=== PATIENT | male | born 1960 | race Caucasian/White ===

== ENCOUNTER 2018-02-23 10:41 | Emergency (ER) | payer BC ==
[2018-02-23 11:05] VITALS: BP 129/90
[2018-02-23] MEDS ORDERED: Diphtheria,Pertussis(Acell),Tetanus Vaccine 0.5 ML SDV IM ONE (12:09)
--- NOTE | 2018-02-23 13:06 | EDM.PDOC ---
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 No LOC. Tetanus status unknown. No changes in vision. Denies trauma to eyes/nose or anywhere else on face. No neck pain. Able to open and close jaw, says teeth meet up appropriately. No other complaints. Treatments ACADEMY DIRECTOR: Reports: Other (see below) Other Treatments ACADEMY DIRECTOR: pressure dressing to lip Lip Pain Score (Numeric/FACES): 0 - Related Data Allergies Allergy/AdvReac Type Severity Reaction Status Date / Time morphine Allergy Itching Verified 02/23/18 11:01 Home Meds: Home Meds Lisinopril/Hydrochlorothiazide [Lisinopril-Hctz 20-25 mg Tab] 1 tab PO DAILY [History] Acetaminophen [Tylenol] 650 mg PO Q4H PRN #100 tablet 04/14/16 [Rx] Aspirin [Adult Low Dose Aspirin EC] 81 mg PO QAM 10/28/16 [History] Metoprolol Succinate [Toprol XL] 25 mg PO BEDTIME 10/28/16 [History] glipiZIDE [Glucotrol XL] 2.5 mg PO DAILY #30 tab.er 10/30/16 [Rx] metFORMIN [Glucophage] 850 mg PO BID #60 tablet 10/30/16 [Rx] Multivitamins [Tab-A-Carmita] 1 tab PO DAILY 02/23/18 [History] Penicillin V Potassium [Veetids] 500 mg PO Q8H #15 tab 02/23/18 [Rx] Ubidecarenone [Co Q-10] 100 mg PO DAILY 02/23/18 [History] Past Medical History HEENT History: Reports: Impaired Vision, Other (See Below) Other HEENT History: Wears glasses Cardiovascular History: Reports: High Cholesterol, Hypertension, Other (See Below) Other Cardiovascular History: 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 Respiratory History: Reports: None Gastrointestinal History: Reports: Colon Polyp, Diverticulosis, GERD, Other ( See Below) Other Gastrointestinal History: Diverticulosis by CT scan, fatty liver as above , benign polyp at age 51 Genitourinary History: Reports: Renal Calculus, Other (See Below) Other Genitourinary History: Chronic left-sided nephrolithiasis diagnosed by CT scan on 01/04/13 Musculoskeletal History: Reports: Fracture, Osteoarthritis, Other (See Below) Other Musculoskeletal History: Right wrist fracture at age 18 Neurological History: Reports: None Psychiatric History: Reports: None Endocrine/Metabolic History: Reports: Diabetes, Type II, Other (See Below) Other Endocrine/Metabolic History: Borderline diabetes currently treated with diet Hematologic History: Reports: None Immunologic History: Reports: None Oncologic (Cancer) History: Reports: None Dermatologic History: Reports: None - Infectious Disease History Infectious Disease History: Reports: Chicken Pox, Mumps - Past Surgical History Head Surgeries/Procedures: Reports: None HEENT Surgical History: Reports: Oral Surgery, Other (See Below) Respiratory Surgical History: Reports: None GI Surgical History: Reports: Colonoscopy, Polypectomy, Other (See Below) Male Surgical History: Reports: Circumcision, Other (See Below) Neurological Surgical History: Reports: None Musculoskeletal Surgical History: Reports: Knee Replacement, Shoulder Surgery, Other (See Below) Oncologic Surgical History: Reports: None Dermatological Surgical History: Reports: None - Past Imaging History Past Imaging History: Reports: CAT Scan Social & Family History - Family History HEENT: Reports: None. Denies: Allergic Rhinitis, Glaucoma, Macular Degeneration , Retinal Detachment Cardiac: Reports: CAD, NM, Other (See Below) Other Cardiac Family History: Maternal uncle with recurrent NM initially in his 50s, paternal uncle with fatal NM at about age 60 Respiratory: Reports: None. Denies: Asthma, COPD, PE, Sleep Apnea GI: Reports: None. Denies: Cholelithiasis, Colon Polyps, GERD, Hepatitis, Inflammatory Bowel Disease, Pancreatitis, PUD : Reports: None. Denies: Dialysis, Renal Calculus, Renal Disease/ Insufficiency OBGYN: Reports: None. Denies: Endometriosis, Recurrent Spontaneous Musculoskeletal: Reports: Arthritis, Osteoarthritis, Other (See Below) Other Musculoskeletal Family History: Mother with arthritis Neurological: Reports: Cerebral Aneurysms, CVA, Other (See Below) Other Neurological Family History: Father with bleeding cerebral aneurysm and mild hemorrhagic CVA with successful surgery at age 47 Psychiatric: Reports: None. Denies: Abuse, Victim of, Anxiety, Depression, Psych Hospitalization(s), Suicide Attempt Endocrine/Metabolic: Reports: None. Denies: Diabetes, Type I, Diabetes, type II , Hypothyroidism, IDDM Hematologic: Reports: None. Denies: Anemia, B12 Deficiency, SLE, Transfusion Reaction Immunologic: Reports: None. Denies: AIDS, HIV Dermatologic: Reports: None. Denies: Eczema, Psoriasis Oncologic: Reports: Brain, Lung, Other (See Below) Other Oncologic Family History: Other with unknown type of fatal cancer at age 83, brother with fatal lung cancer at age 60, sister with fatal brain cancer at age 50 - Tobacco Use Smoking Status *Q: Former Smoker Used Tobacco, but Quit: Yes Month/Year Tobacco Last Used: quit many years ago - Caffeine Use Caffeine Use: Reports: Coffee, Soda - Recreational Drug Use Recreational Drug Use: No - Living Situation & Occupation Living situation: Reports: , with Family Occupation: Employed ED ROS GENERAL - Review of Systems Review Of Systems: ROS reveals no pertinent complaints other than HPI. ED EXAM, SKIN/RASH Exam: See Below Exam Limited By: No Limitations General Appearance: Alert, WD/WN, Mild Distress Eye Exam: Bilateral Eye: EOMI, PERRL Ears: Normal External Exam, Normal Canal Nose: Normal Inspection Throat/Mouth: Normal Voice, No Airway Compromise, Other (upper lip laceration noted near wet border, as well as inner laceration noted. Area of laceration around gum above upper left incisor noted. Swelling noted in injured lip area. Teeth appear to be firmly in place/no looseness noted. ) Head: Facial Swelling. No: Sinus Tenderness Neck: Normal Inspection, Supple, Non-Tender, Full Range of Motion Respiratory/Chest: No Respiratory Distress Extremities: Normal Capillary Refill Neurological: Alert, Oriented, Normal Cognition, Normal Gait, No Motor/Sensory Deficits Psychiatric: Normal Affect, Normal Mood Skin: Warm, Dry, Wound/Incision (as listed above) ED SKIN PROCEDURES - Laceration/Wound Repair Upper Midline Dorsal Mouth Lac/Wound length In cm: 2.5 Appearance: Subcutaneous Anesthetic Type: Other (nerve block 3cc used for lip anesthesis) Local Anesthesia - Lidocaine (Xylocaine): 1% Plain Local Anesthetic Volume: 3cc Exploration/Debridement/Repair: Wound Explored, In a Bloodless Field, Explored to Base, No Foreign Material Found Closed with: Sutures Suture Size: 4-0 # of Sutures: 5 Suture Type: Nylon, Interrupted Drain Placement: No Tetanus Status Addressed: Yes Complications: No Middle Ventral Mouth Lac/Wound length In cm: 1.5 Appearance: Subcutaneous Anesthetic Type: Local Local Anesthesia - Lidocaine (Xylocaine): 1% Plain Local Anesthetic Volume: 1cc Skin Prep: Saline Exploration/Debridement/Repair: Wound Explored, Explored to Base Closed with: Sutures Suture Size: 4-0 # of Sutures: 2 Suture Type: Interrupted, Other (chromic gut, ) Tetanus Status Addressed: Yes Complications: No Course - Vital Signs Last Recorded V/S: Last Vital Signs Temp 36.3 C 02/23/18 11:04 Pulse 80 02/23/18 11:04 Resp 20 02/23/18 11:04 BP 129/90 02/23/18 11:04 Pulse Ox 100 02/23/18 11:04 - Orders/Labs/Meds Orders: Active Orders 24 hr Category Date Time Status Vaccines to be Administered [RC] PER UNIT ROUTINE Care 02/23/18 12:09 Active Meds: Medications Discontinued Medications Generic Name Dose Route Start Last Admin Trade Name Lela PRN Reason Stop Dose Admin Diphtheria/Tetanus/Acell Pertussis 0.5 ml 02/23/18 12:09 02/23/18 12:15 Adacel IM 02/23/18 12:10 0.5 ml .ONCE ONE Administration Lidocaine HCl 5 ml 02/23/18 11:48 02/23/18 12:12 Xylocaine-Mpf 1% INJECT 02/23/18 11:49 5 ml ONETIME ONE Administration - Re-Assessments/Exams Free Text/Narrative Re-Assessment/Exam: 02/23/18 13:15 Lower lip had through and through laceration. Outer laceration closed with 5 interrupted sutures. Inner laceration closed with 2 interrupted absorbable sutures. Gum laceration very superficial. Unable to lift flaps. Did not require sutures. Tetanus updated. Wound care discussed. Sutures to be removed in 5 days. Departure - Departure Time of Disposition: 13:02 Disposition: Home, Self-Care 01 Condition: Good Clinical Impression: Lip laceration Qualifiers: Encounter type: initial encounter Qualified Code(s): S01.511A - Laceration without foreign body of lip, initial encounter Laceration of upper gum Qualifiers: Encounter type: initial encounter Qualified Code(s): S01.512A - Laceration without foreign body of oral cavity, initial encounter Contusion of mouth Qualifiers: Encounter type: initial encounter Qualified Code(s): S00.532A - Contusion of oral cavity, initial encounter - Discharge Information Prescriptions: Penicillin V Potassium [Veetids] 500 mg PO Q8H #15 tab Instructions: Mouth Laceration, [id number] Referrals: Varun Alvarez MD [Primary Care Provider] - Forms: ED Department Discharge Additional Instructions: Have lip sutures removed Monday. Follow up as needed if you develop any problems or concerns. - My Orders Last 24 Hours: My Active Orders 02/23/18 12:09 Vaccines to be Administered [RC] PER UNIT ROUTINE - Assessment/Plan Last 24 Hours: My Active Orders 02/23/18 12:09 Vaccines to be Administered [RC] PER UNIT ROUTINE
== END 2018-02-23 13:27 | disposition home or self-care (01) ==
LOC: LL.ED 10:41
DX: S01.511A Laceration without foreign body of lip, initial encounter (principal); S01.512A Laceration without foreign body of oral cavity, initial encounter; I10 Essential (primary) hypertension; E11.9 Type 2 diabetes mellitus without complications; Z88.5 Allergy status to narcotic agent; Z23 Encounter for immunization; Z79.899 Other long term (current) drug therapy; Z87.891 Personal history of nicotine dependence
CPT/HCPCS: 12013; 90471; 90715; 99283

== ENCOUNTER 2019-01-18 06:09 | Observation (INO) | payer BC ==
[2019-01-18] MEDS ORDERED: Lactated Ringers 1,000 ML IV ONE (06:24)
[2019-01-18] MEDS ORDERED: Ondansetron 4 MG/2 ML SDV IVPUSH ONE (06:24)
[2019-01-18] MEDS ORDERED: Pantoprazole 40 MG Vial IVPUSH ONE (06:24)
[2019-01-18] MEDS ORDERED: Famotidine 20 MG/2 ML SDV IVPUSH ONE (06:24)
--- NOTE | 2019-01-18 06:24 | EDM.PDOC ---
ED HPI GENERAL MEDICAL PROBLEM - General Chief Complaint: Flank Pain Stated Complaint: left side pain, hx kidney stone Time Seen by Provider: 01/18/19 06:15 Source of Information: Reports: Patient, Family (), Old Records ([facility] chart/EMR) History Limitations: Reports: No Limitations - History of Present Illness INITIAL COMMENTS - FREE TEXT/NARRATIVE: The patient was brought to the emergency room via private automobile by his for evaluation of refractory severe left-sided 10/10 colic including moderate gross hematuria with symptoms starting at about 23:30 hours this past evening. He has had colic type symptoms since 01/[address] scan for left-sided urolithiasis on 12/27 without hydronephrosis at that time. Patient also has had some nausea with one episode of emesis immediately prior to arrival. He has not taken any medications for his colic today. No recent history of other abdominal pain, heartburn, diarrhea, melena, gross hematochezia , or any food intolerance, including fatty foods, etc. with normal bowel movement yesterday. The patient denies any chest pain/pressure, heart flutter, dizziness, orthostasis, orthopnea, diaphoresis, paresthesias, recent decreased exercise tolerance, or any other anginal-type symptoms. The patient also denies any recent fever, cough, wheezing, dyspnea, etc.. Onset: Sudden Onset Date: 01/17/19 Onset Time: 23:30 Duration: Colic, Getting Worse, Intermittent Location: Denies: Head, Face, Neck, Chest, Abdomen, Back, Pelvis, Upper Extremity, Left, Upper Extremity, Right, Radiates to Quality: Reports: Same as Previous Episode, Sharp, Stabbing Severity: Severe Improves with: Reports: None Worsens with: Reports: None Context: Reports: Other (As above). Denies: Sick Contact, Trauma Associated Symptoms: Reports: Nausea/Vomiting. 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: Reports: Other (see below) (None) Left Upper Posterior Abdomen Pain Score (Numeric/FACES): 10 - Related Data Allergies Allergy/AdvReac Type Severity Reaction Status Date / Time morphine Allergy Itching Verified 01/18/19 06:13 Home Meds: Home Meds Lisinopril/Hydrochlorothiazide [Lisinopril-Hctz 20-25 mg Tab] 1 tab PO DAILY [History] Acetaminophen [Tylenol] 650 mg PO Q4H PRN #100 tablet 04/14/16 [Rx] Aspirin [Adult Low Dose Aspirin EC] 81 mg PO QAM 10/28/16 [History] Metoprolol Succinate [Toprol XL] 25 mg PO BEDTIME 10/28/16 [History] glipiZIDE [Glucotrol XL] 2.5 mg PO DAILY #30 tab.er 10/30/16 [Rx] metFORMIN [Glucophage] 850 mg PO BID #60 tablet 10/30/16 [Rx] Multivitamins [Tab-A-Carmita] 1 tab PO DAILY 02/23/18 [History] Penicillin V Potassium [Veetids] 500 mg PO Q8H #15 tab 02/23/18 [Rx] Ubidecarenone [Co Q-10] 100 mg PO DAILY 02/23/18 [History] Past Medical History HEENT History: Reports: Hard of Hearing, Impaired Vision, Other (See Below). Denies: Allergic Rhinitis, Cataract, Glaucoma, Macular Degeneration, Otitis Media, Retinal Detachment Other HEENT History: Wears glasses more however has been noncompliant. No history of diabetic retinopathy. Bilateral hearing loss? Etiology Cardiovascular History: Reports: Afib, Heart Failure, High Cholesterol, Hypertension, Other (See Below). Denies: Aneurysm, Arrhythmia, Blood Clots/VTE/ DVT, CAD, Heart Murmur, SD, PVD, Syncope Other Cardiovascular History: Hyperlipidemia with history of secondary fatty liver. Atrial fibrillation with ventricular response and CHF on 04/13/16 with negative workup for coronary artery disease and no recurrence of his arrhythmia since this hospitalization. No current Coumadin therapy. Respiratory History: Reports: None. Denies: Asthma, Bronchitis, Recurrent, COPD , Intubation, Previous, PE, Pneumothorax, Sleep Apnea, TB Gastrointestinal History: Reports: Colon Polyp, Diverticulosis, GERD, Other ( See Below). Denies: Celiac Disease, Cholelithiasis, Chronic Constipation, Chronic Diarrhea, Fecal Incontinence, Gastritis, Hepatitis, Hiatal Hernia, Inflammatory Bowel Disease, Irritable Bowel Syndrome, Jaundice, Pancreatitis Other Gastrointestinal History: Diverticulosis by CT scan, fatty liver as above , benign polyp at age 51 Genitourinary History: Reports: Renal Calculus, Other (See Below). Denies: Acute Renal Failure, BPH, Chronic Renal Insuffiency, Diabetic Nephropathy, STD, Urinary Incontinence, UTI, Recurrent Other Genitourinary History: Chronic left-sided nephrolithiasis diagnosed by CT scan on 01/04/13 with colic starting on 01/14/19. Musculoskeletal History: Reports: Arthritis, Fracture, Osteoarthritis, Other ( See Below). Denies: Back Pain, Chronic, Gout, Neck Pain, Chronic, RA, SLE Other Musculoskeletal History: Right wrist fracture at age 18 Neurological History: Reports: None. Denies: Cerebral Aneurysms, CVA, Headaches , Chronic, Head Trauma, Migraines, MS, Neuropathy, Diabetic, Neuropathy, Peripheral, Parkinson's, Seizure, TIA, Vertigo Psychiatric History: Reports: None, Addiction. Denies: Abuse, Victim of, ADD, ADHD, Anxiety, Depression, Psych Hospitalization(s), PTSD, Suicide Attempt, Suicidal Ideation Endocrine/Metabolic History: Reports: Diabetes, Type II, Other (See Below). Denies: Diabetes, Type I, Diabetes Mellitus, Type 3c, Hypothyroidism, IDDM Hematologic History: Reports: None. Denies: Anemia, Blood Transfusion(s), Iron Deficiency Immunologic History: Reports: None. Denies: AIDS, HIV, SLE Oncologic (Cancer) History: Reports: None. Denies: Basal Cell Carcinoma, Colon , Hodgkin's Lymphoma, Leukemia, Lymphoma, Malignant Melanoma, Non-Hodgkin's Lymphoma, Squamous Cell Carcinoma Dermatologic History: Reports: None. Denies: Eczema, Psoriasis - Infectious Disease History Infectious Disease History: Reports: Chicken Pox, Mumps. Denies: C-Difficile, Measles, Meningitis, Mononucleosis, MRSA, Pertussis (Whooping Cough), Rheumatic Fever, Rubella, Scarlet Fever, Shingles, TB, VRE - Past Surgical History Head Surgeries/Procedures: Reports: None HEENT Surgical History: Reports: Oral Surgery, Other (See Below). Denies: Adenoidectomy, Eye Surgery, LASIK, Myringotomy w Tube(s), Naso-Sinus Surgery, Tonsillectomy Other HEENT Surgeries/Procedures: [place] teeth extraction and 4 at about age 21. Cardiovascular Surgical History: Reports: None. Denies: Varicose Respiratory Surgical History: Reports: None. Denies: Thoracentesis GI Surgical History: Reports: Colonoscopy, Polypectomy, Other (See Below). Denies: Appendectomy, Cholecystectomy, EGD, Hernia, Abdominal, Hernia, Inguinal , Hernia Repair/Other Other GI Surgeries/Procedures: Colonoscopy at about age 51 with removal of unknown type of benign polyp. Male Surgical History: Reports: Circumcision, Other (See Below). Denies: Renal Calculus, TURP-Transurethral Resection of Prostate, Vasectomy Other Male Surgeries/Procedures: Circumcision as an . Endocrine Surgical History: Reports: None. Denies: Thyroid Biopsy Neurological Surgical History: Reports: None. Denies: C-Spine, Discectomy, Laminectomy, Lumbar Spine, Sacral Spine, Spinal Fusion, Thoracic Spine, Vertebroplasty Musculoskeletal Surgical History: Reports: Knee Replacement, Shoulder Surgery, Other (See Below). Denies: Arthroscopic Procedure, Carpal Tunnel, Ganglion Cyst , Hip Replacement, Joint Replacement, ORIF Other Musculoskeletal Surgeries/Procedures:: Right TKA on 07/01/13. Oncologic Surgical History: Reports: None Dermatological Surgical History: Reports: None - Past Imaging History Past Imaging History: Reports: CAT Scan (CT scan of the abdomen and pelvis on positive for urolithiasis as above with previous evaluation on 01/04/13.), Stress Testing (Negative Cardiolite stress test on 04/21/16 with ejection fraction of 61%.) Social & Family History - Family History HEENT: Reports: None. Denies: Allergic Rhinitis, Glaucoma, Macular Degeneration , Retinal Detachment Cardiac: Reports: CAD, SD, Other (See Below). Denies: Afib, Aneurysm, Arrhythmia, Bypass, Heart Failure, Heart Murmur, High Cholesterol, Hypertension , Pacemaker, PVD/COD, Stent, Syncope Other Cardiac Family History: Maternal uncle with recurrent SD initially in his 50s, paternal uncle with fatal SD at about age 60 Respiratory: Reports: None. Denies: Asthma, COPD, PE, Pneumothorax, Sleep Apnea GI: Reports: None. Denies: Celiac Disease, Cholelithiasis, Colon Polyps, GERD, GI bleed, Hepatitis, Inflammatory Bowel Disease, Irritable Bowel Syndrome, Pancreatitis, PUD : Reports: None. Denies: Dialysis, Renal Calculus, Renal Disease/ Insufficiency OBGYN: Reports: None. Denies: Endometriosis, Recurrent Spontaneous Musculoskeletal: Reports: Arthritis, Osteoarthritis, Other (See Below). Denies : Gout, RA, SLE Other Musculoskeletal Family History: Mother with arthritis Neurological: Reports: Cerebral Aneurysms, CVA, Other (See Below). Denies: Alzheimers Disease, Dementia, Migraines, MS, Parkinson's, Seizure, TIA Other Neurological Family History: Father with bleeding cerebral aneurysm and mild hemorrhagic CVA with successful surgery at age 47 Psychiatric: Reports: None. Denies: Abuse, Victim of, Anxiety, Depression, Psych Hospitalization(s), Suicide Attempt Endocrine/Metabolic: Reports: None. Denies: Diabetes, Type I, Diabetes, type II , Hypothyroidism, IDDM Hematologic: Reports: None. Denies: Anemia, B12 Deficiency, SLE, Transfusion Reaction Immunologic: Reports: None. Denies: AIDS, HIV Dermatologic: Reports: None. Denies: Eczema, Psoriasis Oncologic: Reports: Brain, Lung, Other (See Below) Other Oncologic Family History: Father with unknown type of fatal cancer at age 83, brother with fatal lung cancer at age 60, sister with fatal brain cancer at age 50. - Tobacco Use Smoking Status *Q: Current Every Day Smoker Tobacco Use Within Last Twelve Months: Snuff/Dip Years of Tobacco use: 40 Packs/Tins Daily: 0.2 Packs/Tins Daily Comment: Patient with history of cigarette use between ages 18 and 26 with average use of one pack per week. Chewing tobacco use since age 16 with 1 can every 2 weeks. Used Tobacco, but Quit: No Smoking Cessation Information Provided To Patient: Yes Second Hand Smoke Exposure: No Second Hand Smoke Education Provided: No - Caffeine Use Caffeine Use: Reports: Coffee (2 cups per day), Soda (One soda per day). Denies : Energy Drinks, Tea - Alcohol Use Alcohol Use History: Yes Days Per Week of Alcohol Use: 2 Number of Drinks Per Day: 4 Number of Drinks Per Day Comment: Usually beer. No previous DWIs, problems with alcohol abuse, etc. Total Drinks Per Week: 8 Alcohol Use in Last Twelve Months: Yes - Recreational Drug Use Recreational Drug Use: Yes Drug Use in Last 12 Months: Yes Recreational Drug Type: Reports: Marijuana/Hashish (Started use at age 21 mostly on a weekly basis with recent decrease to 1 time per month.). 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 ED EXAM, RENAL/ - Physical Exam Exam: See Below Exam Limited By: Uncooperative General Appearance: Alert, WD/WN, No Apparent Distress Eye Exam: Bilateral Eye: EOMI, Normal Inspection (No nystagmus. Patient does not have his glasses.), PERRL Ears: Normal External Exam, Normal Canal, Normal TMs, Hearing Loss (Mild bilateral hearing loss ). No: Hearing Grossly Normal Nose: Normal Inspection, Normal Mucosa, No Blood Throat/Mouth: Normal Inspection, Normal Lips, Normal Teeth, Normal Gums, Normal Oropharynx, Normal Voice, No Airway Compromise. No: Dysphagia, Perioral Cyanosis Head: Atraumatic, Normocephalic. No: Facial Swelling, Facial Tenderness, Sinus Tenderness Neck: Normal Inspection, Supple, Non-Tender, Full Range of Motion. No: Carotid Bruit, Lymphadenopathy (L), Lymphadenopathy (R), Thyromegaly Respiratory/Chest: No Respiratory Distress, Lungs Clear, Normal Breath Sounds, No Accessory Muscle Use, Chest Non-Tender. No: Pleural Rub, Retractions Cardiovascular: Normal Peripheral Pulses, Regular Rate, Rhythm, No Edema, No Gallop, No JVD, No Murmur, No Rub. No: Gallop/S3, Gallop/S4, Friction Rub GI/Abdominal: Normal Bowel Sounds, Soft, Non-Tender, No Organomegaly, No Distention, No Abnormal Bruit, No Mass, Pelvis Stable. No: Guarding, Rigid, Rebound, Tender (Male) Exam: Deferred Rectal (Males) Exam: Deferred Back Exam: Full Range of Motion, CVA Tenderness (L) (Mild, however improved by time of exam). No: CVA Tenderness (R), Decreased Range of Motion, Muscle Spasm Extremities: Normal Inspection, Normal Range of Motion, Non-Tender, No Pedal Edema, Normal Capillary Refill. No: Eugene's Sign Neurological: Alert, Oriented, CN II-XII Intact, Normal Cognition, Normal Gait, Normal Reflexes (Negative Babinski's), No Motor/Sensory Deficits Psychiatric: Normal Affect, Normal Mood Skin Exam: Warm, Dry, Intact, Normal Color, No Rash. No: Diaphoretic, Wound/ Incision Lymphatic: No Adenopathy Course - Vital Signs Last Recorded V/S: Last Vital Signs Temp 37.1 C 01/18/19 06:15 Pulse 71 01/18/19 06:15 Resp 16 01/18/19 06:15 BP 117/66 01/18/19 06:15 Pulse Ox 93 L 01/18/19 06:15 Vital Signs - 24 hr 01/18/19 06:15 Temperature [ 37.1 C Oral] Pulse, 71 Peripheral [ Left Pulse Oximetry] Respiratory 16 Rate Blood Pressure 117/66 [Right Upper Arm] O2 Sat by Pulse 93 L Oximetry - Orders/Labs/Meds Orders: Active Orders 24 hr Category Date Time Status Peripheral IV Care [RC] . DIRECTED Care 01/18/19 06:25 Active Nothing Per Oral Diet [DIET] Diet 01/18/19 Breakfast Active Abdomen Series w Chest 1V [CR] Stat Exams 01/18/19 06:25 Taken CULTURE URINE [RM] Stat Lab 01/18/19 06:25 Ordered UA W/MICROSCOPIC [URIN] Stat Lab 01/18/19 06:25 Ordered Sodium Chloride 0.9% [Saline Flush] Med 01/18/19 06:24 Active 10 ml FLUSH ASDIRECTED PRN Obtain Past Medical Record [OM.PC] Urgent Oth 01/18/19 06:25 Active Peripheral IV Insertion Adult [OM.PC] Stat Oth 01/18/19 06:25 Ordered Resuscitation Status Stat Resus Stat 01/18/19 06:24 Ordered Medication Orders Sodium Chloride (Saline Flush) 10 ml FLUSH ASDIRECTED PRN PRN Reason: Keep Vein Open Labs: Laboratory Tests 01/18/19 01/18/19 01/18/19 Range/Units 06:20 06:20 06:20 WBC 9.7 (4.0-10.2) K/uL RBC 5.00 (4.33-5.41) M/uL Hgb 16.0 (13.1-16.8) g/dL Hct 44.8 (39.0-49.0) % MCV 89.6 (84.0-98.0) fL MCH 32.0 (28.2-33.3) pg MCHC 35.7 (31.7-36.0) g/dL RDW 12.5 (11.2-14.1) % Plt Count 248 (150-350) K/uL Neut % (Auto) 68.9 (45.0-80.0) % Lymph % (Auto) 20.5 (10.0-50.0) % Lassen % (Auto) 9.3 (2.0-14.0) % Eos % (Auto) 0.9 (0.0-5.0) % Baso % (Auto) 0.4 (0.0-2.0) % Neut # (Auto) 6.67 (1.40-7.00) K/uL Lymph # (Auto) 1.98 (0.50-3.50) K/uL Lassen # (Auto) 0.90 (0.00-1.00) K/uL Eos # (Auto) 0.09 (0.00-0.50) K/uL Baso # (Auto) 0.04 (0.00-0.20) K/uL Sodium 140 (136-145) mmol/L Potassium 4.3 (3.5-5.1) mmol/L Chloride 105 (98-107) mmol/L Carbon Dioxide 25.1 (21.0-32.0) mmol/L BUN 27 H (7-18) mg/dL Creatinine 0.88 (0.51-1.17) mg/dL Est Cr Clr Drug Dosing TNP Estimated GFR (MDRD) > 60 mL/min Glucose 140 H (74-106) mg/dL Lactic Acid (0.4-2.0) mmol/L Uric Acid 7.0 (2.6-7.2) mg/dL Calcium 8.5 (8.5-10.1) mg/dL Magnesium 1.9 (1.8-2.4) mg/dL Total Bilirubin 0.3 (0.2-1.0) mg/dL AST 25 (15-37) U/L ALT 44 (12-78) U/L Alkaline Phosphatase 73 (46-116) IU/L Total Protein 7.7 (6.4-8.2) g/dL Albumin 4.2 (3.4-5.0) g/dL Amylase 72 (25-115) U/L Lipase 204 (73-393) U/L 01/18/19 Range/Units 06:20 WBC (4.0-10.2) K/uL RBC (4.33-5.41) M/uL Hgb (13.1-16.8) g/dL Hct (39.0-49.0) % MCV (84.0-98.0) fL MCH (28.2-33.3) pg MCHC (31.7-36.0) g/dL RDW (11.2-14.1) % Plt Count (150-350) K/uL Neut % (Auto) (45.0-80.0) % Lymph % (Auto) (10.0-50.0) % Lassen % (Auto) (2.0-14.0) % Eos % (Auto) (0.0-5.0) % Baso % (Auto) (0.0-2.0) % Neut # (Auto) (1.40-7.00) K/uL Lymph # (Auto) (0.50-3.50) K/uL Lassen # (Auto) (0.00-1.00) K/uL Eos # (Auto) (0.00-0.50) K/uL Baso # (Auto) (0.00-0.20) K/uL Sodium (136-145) mmol/L Potassium (3.5-5.1) mmol/L Chloride (98-107) mmol/L Carbon Dioxide (21.0-32.0) mmol/L BUN (7-18) mg/dL Creatinine (0.51-1.17) mg/dL Est Cr Clr Drug Dosing Estimated GFR (MDRD) mL/min Glucose (74-106) mg/dL Lactic Acid 0.5 (0.4-2.0) mmol/L Uric Acid (2.6-7.2) mg/dL Calcium (8.5-10.1) mg/dL Magnesium (1.8-2.4) mg/dL Total Bilirubin (0.2-1.0) mg/dL AST (15-37) U/L ALT (12-78) U/L Alkaline Phosphatase (46-116) IU/L Total Protein (6.4-8.2) g/dL Albumin (3.4-5.0) g/dL Amylase (25-115) U/L Lipase (73-393) U/L Meds: Medications Generic Name Dose Route Start Last Admin Trade Name Freq PRN Reason Stop Dose Admin Sodium Chloride 10 ml 01/18/19 06:24 Saline Flush FLUSH ASDIRECTED PRN Keep Vein Open Discontinued Medications Generic Name Dose Route Start Last Admin Trade Name Freq PRN Reason Stop Dose Admin Famotidine 40 mg 01/18/19 06:24 01/18/19 06:55 Pepcid IVPUSH 01/18/19 06:25 40 mg ONETIME ONE Administration Hydromorphone HCl 1 mg 01/18/19 06:28 01/18/19 06:37 Dilaudid IVPUSH 01/18/19 06:29 1 mg ONETIME ONE Administration Lactated Ringer's 1,000 mls @ 999 mls/hr 01/18/19 06:24 01/18/19 07:05 Ringers, Lactated IV 01/18/19 07:24 999 mls/hr .BOLUS ONE Administration Ketorolac Tromethamine 30 mg 01/18/19 06:27 01/18/19 06:54 Toradol IVPUSH 01/18/19 06:28 30 mg ONETIME ONE Administration Ondansetron HCl 4 mg 01/18/19 06:24 01/18/19 06:43 Zofran IVPUSH 01/18/19 06:25 4 mg ONETIME ONE Administration Pantoprazole Sodium 40 mg 01/18/19 06:24 01/18/19 06:55 Protonix Iv IVPUSH 01/18/19 06:25 40 mg ONETIME ONE Administration Tamsulosin HCl 0.4 mg 01/18/19 06:27 01/18/19 06:55 Flomax PO 01/18/19 06:28 0.4 mg ONETIME ONE Administration - Radiology Interpretation Free Text/Narrative:: Acute abdominal x-rays is evidence of moderate diffuse increased bowel gaseous pattern with no fluid levels, free air, ileus, obstruction, etc. Mild osteoarthritic changes noted. No cardiomegaly, CHF, or pulmonary infiltrates. Mild pulmonary obstructive disease. No intra-abdominal calcifications noted. Departure - Departure Time of Disposition: 07:55 Disposition: Refer to Observation Condition: Good Clinical Impression: Colic in adult, Hypertension, Hyperlipidemia, Osteoarthritis, Tobacco abuse counseling, Illicit drug use, Diabetes mellitus, COPD (chronic obstructive pulmonary disease), CHF (congestive heart failure), Atrial fibrillation with rapid ventricular response - Discharge Information *PRESCRIPTION DRUG MONITORING PROGRAM REVIEWED*: Not Applicable *COPY OF PRESCRIPTION DRUG MONITORING REPORT IN PATIENT MASSIEL: Not Applicable Referrals: Tiffany Ku, [employer] JOINTER OPERATOR [Primary Care Provider] - Forms: ED Department Discharge Care Plan Goals: See plan - Problem List & Annotations (1) Colic in adult SNOMED Code(s): 7469969 Code(s): R10.84 - GENERALIZED ABDOMINAL PAIN Status: Acute Priority: High Onset Date: 01/14/19 Annotation/Comment:: Refractory colic. Significant improvement with aggressive treatment in the ER as above. Based on recent CT scan he should be able to pass this stone spontaneously. Various therapeutic options were discussed with the patient agreed to placement in observation status for further treatment and pain control. Renal ultrasound to be conducted later today to rule out possible developing hydronephrosis. Urology consultation depending on his clinical course. Urine is to be screened with future stone analysis. (2) Atrial fibrillation with rapid ventricular response SNOMED Code(s): 944227620054042 Code(s): I48.91 - UNSPECIFIED ATRIAL FIBRILLATION Status: Acute Priority : High Onset Date: 04/13/16 Annotation/Comment:: No chest pain or anginal type symptoms. Note negative previous workup for coronary artery disease as above. He is not on Coumadin. (3) Hypertension SNOMED Code(s): 40778856 Code(s): I10 - ESSENTIAL (PRIMARY) HYPERTENSION Status: Chronic Priority : Medium Annotation/Comment:: Blood pressures stable in the emergency room. Qualifiers: Hypertension type: essential hypertension Qualified Code(s): I10 - Essential (primary) hypertension (4) Hyperlipidemia SNOMED Code(s): 56277176 Code(s): E78.5 - HYPERLIPIDEMIA, UNSPECIFIED Status: Chronic Priority: Medium Annotation/Comment:: Severe dyslipidemia in the past with continued close observation by his regular providers. Note history of fatty liver. Qualifiers: Hyperlipidemia type: mixed hyperlipidemia Qualified Code(s): E78.2 - Mixed hyperlipidemia (5) Osteoarthritis SNOMED Code(s): 489638028 Code(s): M19.90 - UNSPECIFIED OSTEOARTHRITIS, UNSPECIFIED SITE Status: Chronic Priority: Medium Annotation/Comment:: Stable by history Qualifiers: Osteoarthritis location: multiple joints Osteoarthritis type: primary Qualified Code(s): M15.0 - Primary generalized (osteo)arthritis (6) Tobacco abuse counseling SNOMED Code(s): 594793524, 560599908, 579436801 Code(s): Z71.6 - TOBACCO ABUSE COUNSELING Status: Chronic Priority: Medium Annotation/Comment:: Chewing Tobacco cessation strongly encouraged. Tobacco cessation information should be once again provided to the patient at discharge. He was previously counseled on use of Nicorette gum. (7) Illicit drug use SNOMED Code(s): 374983761 Code(s): F19.90 - OTHER PSYCHOACTIVE SUBSTANCE USE, UNSPECIFIED, UNCOMPLICATED Status: Chronic Priority: Medium Annotation/Comment:: He has decreased use of his marijuana recently however complete discontinuation advisable. (8) Diabetes mellitus SNOMED Code(s): 17389163 Code(s): E11.9 - TYPE 2 DIABETES MELLITUS WITHOUT COMPLICATIONS Status: Chronic Priority: Medium Annotation/Comment:: Stable by history with p.m. Accu-Cheks in the 120s by his history. Qualifiers: Diabetes mellitus type: type 2 Diabetes mellitus penitentiary insulin use: without penitentiary use Diabetes mellitus complication status: without complication Qualified Code(s): E11.9 - Type 2 diabetes mellitus without complications (9) COPD (chronic obstructive pulmonary disease) SNOMED Code(s): 42228313 Code(s): J44.9 - CHRONIC OBSTRUCTIVE PULMONARY DISEASE, UNSPECIFIED Status : Chronic Priority: Medium Onset Date: ~04/13/16 Annotation/Comment:: COPD by chest x-ray. PFTs recommended on an outpatient basis. No recent fever or bronchitic-type symptoms. Qualifiers: COPD type: unspecified COPD Qualified Code(s): J44.9 - Chronic obstructive pulmonary disease, unspecified (10) CHF (congestive heart failure) SNOMED Code(s): 36849989 Code(s): I50.9 - HEART FAILURE, UNSPECIFIED Status: Acute Priority: Medium Onset Date: 04/13/16 Annotation/Comment:: As above. - Problem List Review Problem List Initiated/Reviewed/Updated: Yes - My Orders Last 24 Hours: My Active Orders 01/18/19 06:24 Sodium Chloride 0.9% [Saline Flush] 10 ml FLUSH ASDIRECTED PRN Resuscitation Status Stat 01/18/19 06:25 Peripheral IV Care [RC] . DIRECTED Abdomen Series w Chest 1V [CR] Stat CULTURE URINE [RM] Stat UA W/MICROSCOPIC [URIN] Stat Obtain Past Medical Record [OM.PC] Urgent Peripheral IV Insertion Adult [OM.PC] Stat 01/18/19 Breakfast Nothing Per Oral Diet [DIET] - Assessment/Plan Admission H&P: Please use this note as an admission H&P Last 24 Hours: My Active Orders 01/18/19 06:24 Sodium Chloride 0.9% [Saline Flush] 10 ml FLUSH ASDIRECTED PRN Resuscitation Status Stat 01/18/19 06:25 Peripheral IV Care [RC] . DIRECTED Abdomen Series w Chest 1V [CR] Stat CULTURE URINE [RM] Stat UA W/MICROSCOPIC [URIN] Stat Obtain Past Medical Record [OM.PC] Urgent Peripheral IV Insertion Adult [OM.PC] Stat 01/18/19 Breakfast Nothing Per Oral Diet [DIET] Assessment:: As above Plan: As above. Extensive precautions were given to the patient and his , who are in agreement with the treatment plan. The patient's condition is stable enough for observation status and general supervision.
[2019-01-18] MEDS ORDERED: Tamsulosin 0.4 MG Cap.ER PO ONE (06:27)
[2019-01-18] MEDS ORDERED: Ketorolac 30 MG/ML SDV IVPUSH ONE (06:27)
[2019-01-18] MEDS ORDERED: HYDROmorphone 1 MG/ML Syringe IVPUSH ONE (06:28)
[2019-01-18 06:44] LABS: CHLORIDE,CL 105 mmol/L (98-107); SODIUM,NA 140 mmol/L (136-145)
[2019-01-18] MEDS ORDERED: traMADol 50 MG Tab PO PRN (08:53)
[2019-01-18] MEDS ORDERED: Acetaminophen 325 MG Tab PO PRN (09:32)
[2019-01-18] MEDS ORDERED: Ondansetron 4 MG/2 ML SDV IVPUSH PRN (09:32)
[2019-01-18] MEDS ORDERED: HYDROmorphone 1 MG/ML Syringe IVPUSH PRN (09:36)
[2019-01-18] MEDS ORDERED: Tamsulosin 0.4 MG Cap.ER PO SCH (10:00)
[2019-01-18] MEDS: glipiZIDE 2.5 MG Tab.ER PO SCH ×2 (10:18→10:24)
[2019-01-18] MEDS: Hydrochlorothiazide 25 MG Tab PO SCH (10:18)
[2019-01-18] MEDS: D5 1/2 NS w/ 20 mEq/L KCl 1,000 ML IV SCH ×2 (10:18→20:23)
[2019-01-18] MEDS: Aspirin 81 MG Tab.EC PO SCH (10:19)
[2019-01-18] MEDS: Lisinopril 20 MG Tab PO SCH (10:20)
[2019-01-18] MEDS ORDERED: Ketorolac 15 MG/ML SDV IVPUSH PRN (12:00)
[2019-01-18] MEDS: Sodium Chloride 0.9% 10 ML Syringe FLUSH PRN ×3 (15:18→18:27)
[2019-01-18] MEDS: Pantoprazole 40 MG Vial IVPUSH SCH (18:26)
[2019-01-18] MEDS ORDERED: Temazepam 15 MG Cap PO PRN (20:00)
[2019-01-18] MEDS ORDERED: Metoprolol Succinate 25 MG Tab.ER PO SCH (20:00)
[2019-01-18] MEDS: Sodium Chloride 0.9% 10 ML Syringe FLUSH SCH (20:21)
[2019-01-19] MEDS: D5 1/2 NS w/ 20 mEq/L KCl 1,000 ML IV SCH (04:41)
[2019-01-19] MEDS ORDERED: Famotidine 20 MG/2 ML SDV IVPUSH SCH (06:00)
[2019-01-19] MEDS: Sodium Chloride 0.9% 10 ML Syringe FLUSH PRN (06:12)
[2019-01-19] MEDS: Pantoprazole 40 MG Vial IVPUSH SCH (06:12)
[2019-01-19 07:36] LABS: CHLORIDE,CL 107 mmol/L (98-107); SODIUM,NA 140 mmol/L (136-145)
[2019-01-19] MEDS ORDERED: Tamsulosin 0.4 MG Cap.ER PO SCH (08:00)
[2019-01-19] MEDS: Hydrochlorothiazide 25 MG Tab PO SCH (08:23)
[2019-01-19] MEDS: Lisinopril 20 MG Tab PO SCH (08:23)
[2019-01-19] MEDS: glipiZIDE 2.5 MG Tab.ER PO SCH (08:23)
[2019-01-19] MEDS: Aspirin 81 MG Tab.EC PO SCH (08:23)
[2019-01-19 08:24] VITALS: BP 119/74
[2019-01-19] MEDS: Sodium Chloride 0.9% 10 ML Syringe FLUSH SCH (08:49)
[2019-01-19] MEDS ORDERED: Ketorolac 10 MG Tab PO PRN (10:47)
[2019-01-19] MEDS ORDERED: Acetaminophen 325 MG Tab PO PRN (10:56)
--- NOTE | 2019-01-19 11:17 | PCM.DCSUM1 ---
Discharge Summary - Hospital Course Diagnosis: Stroke: No - Discharge Data Discharge Date: 01/19/19 Discharge Disposition: Home, Self-Care 01 Condition: Good - Discharge Diagnosis/Problem(s) (1) Nephrolithiasis SNOMED Code(s): 29536028 ICD Code: N20.0 - CALCULUS OF KIDNEY Status: Acute Current Visit: Yes (2) Nephrolithiasis SNOMED Code(s): 94167046 ICD Code: N20.0 - CALCULUS OF KIDNEY Status: Acute Current Visit: Yes Problem Details: Patient seen today feeling much better at this time patient would like to go home ultrasound of the kidneys revealed no hydronephrosis mild cortex atrophy overall doing better patient will be sent home follow-up in clinic at this time we will send him home with a strainer to see past the stone into the bladder and through - Patient Instructions Diet: Diabetic Diet - Discharge Plan *PRESCRIPTION DRUG MONITORING PROGRAM REVIEWED*: Not Applicable *COPY OF PRESCRIPTION DRUG MONITORING REPORT IN PATIENT MASSIEL: Not Applicable Home Medications: Home Meds Lisinopril/Hydrochlorothiazide [Lisinopril-Hctz 20-25 mg Tab] 1 tab PO DAILY [History] Acetaminophen [Tylenol] 650 mg PO Q4H PRN #100 tablet 04/14/16 [Rx] Aspirin [Adult Low Dose Aspirin EC] 81 mg PO QAM 10/28/16 [History] Metoprolol Succinate [Toprol XL] 25 mg PO BEDTIME 10/28/16 [History] glipiZIDE [Glucotrol XL] 2.5 mg PO DAILY #30 tab.er 10/30/16 [Rx] Multivitamins [Tab-A-Carmita] 1 tab PO QAM 02/23/18 [History] metFORMIN HCl [Metformin HCl] 850 mg PO DAILY 01/18/19 [History] Forms: ED Department Discharge Referrals: Tiffany Ku NP [Primary Care Provider] - - Discharge Summary/Plan Comment DC Time >30 min.: Yes - General Info Date of Service: 01/19/19 Functional Status: Reports: Pain Controlled - Review of Systems General: Reports: No Symptoms HEENT: Reports: No Symptoms Pulmonary: Reports: No Symptoms Cardiovascular: Reports: No Symptoms Gastrointestinal: Reports: No Symptoms Genitourinary: Reports: Pain Musculoskeletal: Reports: No Symptoms Skin: Reports: No Symptoms Neurological: Reports: No Symptoms Psychiatric: Reports: No Symptoms - Patient Data Vitals - Most Recent: Last Vital Signs Temp 97.6 F 01/19/19 08:00 Pulse 60 01/19/19 08:00 Resp 20 01/19/19 08:00 BP 119/74 01/19/19 08:23 Pulse Ox 96 01/19/19 08:00 Weight - Most Recent: 202 lb I&O - Last 24 hours: Intake & Output 01/18/19 01/19/19 01/19/19 22:59 06:59 14:59 Intake Total 2187 350 Output Total 1000 500 Balance 1187 -150 Lab Results - Last 24 hrs: Laboratory Results - last 24 hr 01/18/19 01/19/19 01/19/19 Range/Units 06:25 07:03 07:03 WBC 7.4 (4.0-10.2) K/uL RBC 4.33 (4.33-5.41) M/uL Hgb 13.8 D (13.1-16.8) g/dL Hct 39.6 (39.0-49.0) % MCV 91.5 (84.0-98.0) fL MCH 31.9 (28.2-33.3) pg MCHC 34.8 (31.7-36.0) g/dL RDW 12.3 (11.2-14.1) % Plt Count 206 (150-350) K/uL Neut % (Auto) 67.8 (45.0-80.0) % Lymph % (Auto) 21.9 (10.0-50.0) % [place] % (Auto) 8.8 (2.0-14.0) % Eos % (Auto) 1.2 (0.0-5.0) % Baso % (Auto) 0.3 (0.0-2.0) % Neut # (Auto) 4.99 (1.40-7.00) K/uL Lymph # (Auto) 1.61 (0.50-3.50) K/uL [place] # (Auto) 0.65 (0.00-1.00) K/uL Eos # (Auto) 0.09 (0.00-0.50) K/uL Baso # (Auto) 0.02 (0.00-0.20) K/uL Sodium 140 (136-145) mmol/L Potassium 4.5 (3.5-5.1) mmol/L Chloride 107 (98-107) mmol/L Carbon Dioxide 26.7 (21.0-32.0) mmol/L BUN 15 (7-18) mg/dL Creatinine 0.88 (0.51-1.17) mg/dL Est Cr Clr Drug Dosing 98.64 mL/min Estimated GFR (MDRD) > 60 mL/min Glucose 151 H (74-106) mg/dL Calcium 8.0 L (8.5-10.1) mg/dL Total Bilirubin 0.4 (0.2-1.0) mg/dL AST 17 (15-37) U/L ALT 31 (12-78) U/L Alkaline Phosphatase 55 (46-116) IU/L Total Protein 6.4 (6.4-8.2) g/dL Albumin 3.3 L (3.4-5.0) g/dL Specimen Type Urinvoid Urine Color Dark yellow Urine Appearance Slightly cloudy Urine pH 5.5 (5.0-9.0) Ur Specific [place] 1.015 (1.005-1.030) Urine Protein Trace H (NEGATIVE) mg/dL Urine Glucose (UA) Negative (NEGATIVE) mg/dL Urine Ketones Negative (NEGATIVE) mg/dL Urine Occult Blood Large H (NEGATIVE) Urine Nitrite Negative (NEGATIVE) Urine Bilirubin Negative (NEGATIVE) Urine Urobilinogen 0.2 (0.2-1.0) E.U./dL Ur Leukocyte Esterase Negative (NEGATIVE) Urine RBC 50-75 H /HPF Urine WBC 0-5 /HPF Ur Epithelial Cells Few /LPF Urine Bacteria Moderate H (NONE TO FEW) /HPF Urine Mucus Moderate H (NEGATIVE) /LPF Med Orders - Current: Current Medications Acetaminophen (Tylenol) 650 mg PO Q4H PRN PRN Reason: Pain Acetaminophen (Tylenol) 650 mg PO Q4H PRN PRN Reason: Pain Aspirin (Halfprin) 81 mg PO QAM [facility] Last Admin: 01/19/19 08:23 Dose: 81 mg Famotidine (Pepcid) 20 mg IVPUSH Q12H [facility] Last Admin: 01/19/19 06:12 Dose: 20 mg Glipizide (Glucotrol Xl) 2.5 mg PO DAILY [facility] Last Admin: 01/19/19 08:23 Dose: 2.5 mg Hydrochlorothiazide (Hydrochlorothiazide) 25 mg PO DAILY [facility] Last Admin: 01/19/19 08:23 Dose: 25 mg Hydromorphone HCl (Dilaudid) 1 mg IVPUSH Q4H PRN PRN Reason: Pain (severe 7-10) Last Admin: 01/18/19 10:38 Dose: 1 mg Potassium Chloride/Dextrose/Sod Cl (D5 1/2 Ns W/ 20 Meq/L Kcl) 1,000 mls @ 125 mls/hr IV ASDIRECTED [facility] Last Admin: 01/19/19 04:41 Dose: 125 mls/hr Ketorolac Tromethamine (Toradol) 15 mg IVPUSH Q6H PRN PRN Reason: Pain (moderate 4-6) Stop: 01/23/19 06:00 Last Admin: 01/18/19 15:17 Dose: 15 mg Ketorolac Tromethamine (Toradol) 10 mg PO Q6H PRN PRN Reason: Pain Lisinopril (Prinivil) 20 mg PO DAILY [facility] Last Admin: 01/19/19 08:23 Dose: 20 mg Metformin HCl (Glucophage) 850 mg PO DAILY [facility] Last Admin: 01/19/19 08:22 Dose: 850 mg Metformin HCl (Glucophage) 850 mg PO DAILY [facility] Metoprolol Succinate (Toprol Xl) 25 mg PO BEDTIME [facility] Last Admin: 01/18/19 20:20 Dose: 25 mg Multivitamins/Minerals/Vitamin C (Tab-A-Carmita) 1 tab PO QAM [facility] Ondansetron HCl (Zofran) 4 mg IVPUSH Q6H PRN PRN Reason: Nausea/Vomiting Last Admin: 01/18/19 15:17 Dose: 4 mg Pantoprazole Sodium (Protonix Iv) 40 mg IVPUSH Q12H [facility] Last Admin: 01/19/19 06:12 Dose: 40 mg Sodium Chloride (Saline Flush) 10 ml FLUSH ASDIRECTED PRN PRN Reason: Keep Vein Open Last Admin: 01/19/19 06:12 Dose: 10 ml Sodium Chloride (Saline Flush) 10 ml FLUSH Q12HR [facility] Last Admin: 01/19/19 08:49 Dose: Not Given Tamsulosin HCl (Flomax) 0.4 mg PO DAILY [facility] Last Admin: 01/19/19 08:22 Dose: 0.4 mg Tamsulosin HCl (Flomax) 0.4 mg PO DAILY [facility] Stop: 02/18/19 08:01 Temazepam (Restoril) 15 mg PO DAILY@2000 PRN PRN Reason: Insomnia Last Admin: 01/18/19 22:40 Dose: 15 mg Tramadol HCl (Ultram) 50 mg PO Q6H PRN PRN Reason: Pain (moderate 4-6) Last Admin: 01/18/19 09:08 Dose: 50 mg Discontinued Medications Coenzyme Q10 (Coenzyme Q10) 100 mg PO DAILY [facility] Last Admin: 01/18/19 10:18 Dose: 100 mg Famotidine (Pepcid) 40 mg IVPUSH ONETIME ONE Stop: 01/18/19 06:25 Last Admin: 01/18/19 06:55 Dose: 40 mg Hydromorphone HCl (Dilaudid) 1 mg IVPUSH ONETIME ONE Stop: 01/18/19 06:29 Last Admin: 01/18/19 06:37 Dose: 1 mg Lactated Ringer's (Ringers, Lactated) 1,000 mls @ 999 mls/hr IV .BOLUS ONE Stop: 01/18/19 07:24 Last Admin: 01/18/19 07:05 Dose: 999 mls/hr Ketorolac Tromethamine (Toradol) 30 mg IVPUSH ONETIME ONE Stop: 01/18/19 06:28 Last Admin: 01/18/19 06:54 Dose: 30 mg Metformin HCl (Glucophage) 850 mg PO BIDMEALS [facility] Last Admin: 01/18/19 18:35 Dose: Not Given Ondansetron HCl (Zofran) 4 mg IVPUSH ONETIME ONE Stop: 01/18/19 06:25 Last Admin: 01/18/19 06:43 Dose: 4 mg Pantoprazole Sodium (Protonix Iv) 40 mg IVPUSH ONETIME ONE Stop: 01/18/19 06:25 Last Admin: 01/18/19 06:55 Dose: 40 mg Tamsulosin HCl (Flomax) 0.4 mg PO ONETIME ONE Stop: 01/18/19 06:28 Last Admin: 01/18/19 06:55 Dose: 0.4 mg - Exam General: Reports: Alert, Oriented HEENT: Reports: Pupils Equal, Pupils Reactive, EOMI, Mucous Membr. Moist/[place] Neck: Reports: Supple Lungs: Reports: Clear to Auscultation, Normal Respiratory Effort Cardiovascular: Reports: Regular Rate, Regular Rhythm GI/Abdominal Exam: Normal Bowel Sounds, Soft, Non-Tender, No Organomegaly, No Distention, No Abnormal Bruit, No Mass, Pelvis Stable (Male) Exam: Deferred Rectal (Males) Exam: Deferred Back Exam: Reports: Normal Inspection, Full Range of Motion, Paraspinal Tenderness Extremities: Normal Inspection, Normal Range of Motion, Non-Tender, No Pedal Edema, Normal Capillary Refill Skin: Reports: Warm, Dry, Intact Neurological: Reports: No New Focal Deficit Psy/Mental Status: Reports: Alert, Normal Affect, Normal Mood
[2019-01-20] MEDS ORDERED: Tamsulosin 0.4 MG Cap.ER PO SCH (08:00)
[2019-01-20] MEDS ORDERED: Multivitamin Tab PO SCH (08:00)
== END 2019-01-19 11:40 | disposition home or self-care (01) ==
LOC: LL.ED 06:09 → LL.MS 07:55
PROVIDERS: ADMIT Family Medicine; ATTEND Family Medicine
DX: N20.0 Calculus of kidney (principal); Z86.010 Personal history of colon polyps; I10 Essential (primary) hypertension; E11.9 Type 2 diabetes mellitus without complications; I50.9 Heart failure, unspecified; K21.9 Gastro-esophageal reflux disease without esophagitis; Z79.2 Long term (current) use of antibiotics; Z79.84 Long term (current) use of oral hypoglycemic drugs; Z79.82 Long term (current) use of aspirin; Z79.891 Long term (current) use of opiate analgesic; Z79.899 Other long term (current) drug therapy; Z88.5 Allergy status to narcotic agent
CPT/HCPCS: 36415; 74022; 76770; 80053; 81001; 82150; 83605; 83690; 83735; 84550; 85025; 87086; 96361; 96374; 96375; 96376; 99285-25; A9270-GY; C9113; G0378; J1170; J1885; J2405; J3480; J3490; J7120

== ENCOUNTER 2022-05-12 09:21 | Day surgery (SDC) | payer BC, OTHER ==
[~2022-05-12 09:21] MED LIST: Lactated Ringers 1,000 ML IV SCH; Midazolam 1 MG/ML 2 ML SDV ONE; Propofol 200 MG/20 ML SDV ONE; Sodium Chloride 0.9% 10 ML Syringe FLUSH PRN
[2022-05-12 17:40] VITALS: BP 121/83; PULSE 65
== END 2022-05-12 12:08 | disposition home or self-care (01) ==
LOC: LL.SDS 09:21
PROVIDERS: ATTEND Surgery
DX: Z12.11 Encounter for screening for malignant neoplasm of colon (principal); D12.8 Benign neoplasm of rectum; E78.5 Hyperlipidemia, unspecified; I10 Essential (primary) hypertension; E11.9 Type 2 diabetes mellitus without complications; Z86.010 Personal history of colon polyps; Z79.84 Long term (current) use of oral hypoglycemic drugs; Z79.899 Other long term (current) drug therapy; Z88.5 Allergy status to narcotic agent; Z88.8 Allergy status to other drugs, medicaments and biological substances; Z98.890 Other specified postprocedural states; Z87.891 Personal history of nicotine dependence
CPT/HCPCS: 00812; J2250; J2704; J7120